=== PATIENT | female | born 1965 | race Hispanic/Latino ===

== ENCOUNTER 2017-10-05 02:40 | Emergency (ER) | payer SELFPAY ==
[2017-10-05 03:32] LABS: Absolute Lymphocytes (CBC) 0.9 K/uL (0.7-4.9); Absolute Monocytes 0.4 K/uL (0.1-1.3); Absolute Neutrophil 3.9 K/uL (1.8-8.0); Basophils % 0.4 % (0-1.3); Eosinophils % 0.9 % (0-4.4); Hematocrit 33.6 % (36.0-45.0); Lymphocytes % 16.2 % (15.3-44.8); MCH 30.3 pg (27.0-35.0); MCV 87.5 fL (80-100); MPV 10.3 fL (7.6-11.3); Monocytes % 8.3 % (3.3-12.3); RBC Red Blood Cell Count 3.84 M/uL (3.86-4.86)
[2017-10-05 03:44] LABS: ALT/SGPT 18 U/L (12-78); AST/SGOT 16 U/L (15-37); Albumin 3.5 g/dL (3.4-5.0); Alkaline Phosphatase 165 U/L (45-117); BUN Blood Urea Nitrogen 14 mg/dL (7-18); Bicarbonate 25 mmol/L (21-32); Bilirubin Direct < 0.1 mg/dL (0-0.2); Bilirubin Total 0.2 mg/dL (0.2-1.0); Creatine Phosphokinase 58 U/L (26-192); Glucose Level 111 mg/dL (74-106); Magnesium 2.1 mg/dL (1.8-2.4); Phenytoin (Dilantin) Level 5.7 ug/mL (10.0-20.0); Potassium 3.4 mmol/L (3.5-5.1); Protein, Total 7.3 g/dL (6.4-8.2); Sodium Level 142 mmol/L (136-145)
[2017-10-05] MEDS ORDERED: FOSPHENYTOIN PE 500 MG/10 ML VIAL ONE (04:44)
[2017-10-05] MEDS ORDERED: NA CHLORIDE 0.9% 100 ML IV ONE (04:44)
--- NOTE | 2017-10-05 05:18 | EDPHYS ---
Physician Documentation [facility] Name: Janina Calle Age: 51 yrs Sex: Female : 1965 Arrival Date: 10/05/2017 Time: 02:41 Bed 6 Private MD: ED Physician Madi Bone HPI: 10/05 02:44 This 51 yrs old Female presents to ER via EMS with complaints of Seizure. tw4 02:44 The patient presents after having a single isolated seizure, that lasted 1 minute(s). tw4 Character of seizure(s): Loss of consciousness: it is not known if the patient experienced loss of consciousness, Motor activity: generalized, shaking all over, Apnea: the patient did not experience apnea, Circulation: it is unknown whether or not the patient experienced a disturbance in pulse, Eye movements: are unknown. Seizure onset: just prior to arrival. Context: the seizure(s) was witnessed, by family, son. Seizure Hx: Last seizure: The patient's last seizure. Seizure Hx: Cause: unknown, Last seizure: The patient's last seizure was approximately 1 day(s) ago. Associated injury: The patient did not suffer any apparent associated injury. EMS care: none. Current symptoms: Currently, the patient is not experiencing any symptoms. The patient has experienced similar episodes in the past, several times. 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 - Social history:: Smoking status: Patient/guardian denies using tobacco. - Ebola Screening: : Patient negative for fever greater than or equal to 101.5 degrees Fahrenheit, and additional compatible Ebola Virus Disease symptoms Patient denies exposure to infectious person Patient denies travel to an Ebola-affected area in the 21 days before illness onset No symptoms or risks identified at this time. ROS: 02:44 Constitutional: Negative for fever, chills, and weight loss, Eyes: Negative for injury, tw4 pain, redness, and discharge, Cardiovascular: Negative for chest pain, palpitations, and edema, Respiratory: Negative for shortness of breath, cough, wheezing, and pleuritic chest pain, Abdomen/GI: Negative for abdominal pain, nausea, vomiting, diarrhea, and constipation, Back: Negative for injury and pain. 02:44 Neuro: Positive for seizure activity, Negative for altered mental status, dizziness, gait disturbance, headache, hearing loss, tinnitus, tremor, visual changes, weakness. Exam: 02:44 Constitutional: This is a well developed, well nourished patient who is awake, alert, tw4 and in no acute distress. Head/Face: Normocephalic, atraumatic. Chest/axilla: Normal chest wall appearance and motion. Nontender with no deformity. No lesions are appreciated. Cardiovascular: Regular rate and rhythm with a normal S1 and S2. No gallops, murmurs, or rubs. Normal PMI, no JVD. No pulse deficits. Respiratory: Lungs have equal breath sounds bilaterally, clear to auscultation and percussion. No rales, rhonchi or wheezes noted. No increased work of breathing, no retractions or nasal flaring. Abdomen/GI: Soft, non-tender, with normal bowel sounds. No distension or tympany. No guarding or rebound. No evidence of tenderness throughout. Back: No spinal tenderness. No costovertebral tenderness. Full range of motion. MS/ Extremity: Pulses equal, no cyanosis. Neurovascular intact. Full, normal range of motion. Vital Signs: 02:43 BP 99 / 57; Pulse 76; Resp 14; Temp 98; Pulse Ox 99% ; Weight 63.5 kg (R); bp 03:30 BP 100 / 61; Pulse 63; Resp 14; Pulse Ox 97% ; bp 04:26 BP 94 / 59; Pulse 72; Resp 14; Pulse Ox 100% ; bp 05:30 BP 95 / 56; Pulse 73; Resp 16; Pulse Ox 97% ; bp [place] Coma Score: 02:43 Eye Response: spontaneous(4). Verbal Response: oriented(5). Motor Response: obeys bp commands(6). Total: 15. MDM: 02:43 Patient medically screened. tw4 05:18 Differential diagnosis: seizure, TIA. Data reviewed: vital signs, nurses notes. Data tw4 interpreted: site monitor: Pulse oximetry: Interpretation: normal. Counseling: I had a detailed discussion with the patient and/or guardian regarding: the historical points, exam findings, and any diagnostic results supporting the discharge/admit diagnosis, lab results. Special discussion: I discussed with the patient/guardian in detail that at this point there is no indication for admission to the hospital. It is understood, however, that if the symptoms persist or worsen the patient needs to return immediately for re-evaluation. 10/05 03:05 Order name: CBC with Diff; Complete Time: 04:09 10/05 04:09 Interpretation: RBC 3.84; HCT 33.6; HGB 11.6; VALDO% 74.2. 10/05 03:05 Order name: CPK; Complete Time: 04:09 10/05 04:10 Interpretation: Within normal limits: CPK 58. 10/05 03:05 Order name: Hepatic Function; Complete Time: 04:09 10/05 04:10 Interpretation: Within normal limits: BILID < 0.1. 10/05 03:05 Order name: Magnesium; Complete Time: 04:09 10/05 04:10 Interpretation: Within normal limits: MG 2.1. 10/05 03:05 Order name: Ptt, Activated 10/05 03:05 Order name: CMP; Complete Time: 04:09 10/05 04:09 Interpretation: K 3.4; CL 108; GLUC 111; GFR 89. 10/05 03:05 Order name: Cardiac monitoring; Complete Time: 03:07 10/05 03:05 Order name: IV Saline Lock; Complete Time: 03:14 10/05 03:05 Order name: Labs collected and sent; Complete Time: 03:14 10/05 03:05 Order name: NPO; Complete Time: 03:07 10/05 03:05 Order name: O2 Per Protocol; Complete Time: 03:06 10/05 03:05 Order name: O2 Sat Monitoring; Complete Time: 03:06 10/05 03:05 Order name: Dilantin; Complete Time: 04:09 10/05 04:10 Interpretation: Normal except: PTN 5.7. tw4 Administered Medications: 04:30 Drug: Fosphenytoin 15 mg/kg Route: IVPB; Infused Over: 15 mins; Site: right antecubital;bp 05:00 Follow up: IV Status: Completed infusion; IV Intake: 100ml bp Disposition: 10/05/17 05:17 Discharged to Home. Impression: Epilepsy and recurrent seizures. - Condition is Stable. - Discharge Instructions: Seizure, Adult. - Prescriptions for Dilantin Kapseal 100 mg Oral Capsule - take 1 capsule by ORAL route every 8 hours; 30 capsule. - Work release form, Family Work Release, Medication Reconciliation Form, Thank You Letter, Antibiotic Education, Prescription Opioid Use form. - Follow up: Private Physician; When: Today; Reason: Further diagnostic work-up, Recheck today's complaints, Continuance of care. - Problem is new. - Symptoms have improved. Signatures: Dispatcher [employer] Daniel Garrido RN RN Madi Aguirre MD MD tw4 Corrections: (The following items were deleted from the chart) 05:33 05:17 10/05/2017 05:17 Discharged to Home. Impression: Epilepsy and recurrent seizures. bp Condition is Stable. Forms are Medication Reconciliation Form, Thank You Letter, Antibiotic Education, Prescription Opioid Use. Follow up: Private Physician; When: Today; Reason: Further diagnostic work-up, Recheck today's complaints, Continuance of care. Problem is new. Symptoms have improved. tw4
--- NOTE | 2017-10-05 05:18 | ER ---
Nurse's Notes [facility] Name: Janina Calle Age: 51 yrs Sex: Female : 1965 Arrival Date: 10/05/2017 Time: 02:41 Bed 6 Private MD: Diagnosis: Epilepsy and recurrent seizures Presentation: 10/05 02:42 Presenting complaint: EMS states: FOUR SEIZURES OVER THE LAST TWO DAYS. Transition of bp care: patient was not received from another setting of care. Onset of symptoms is unknown. Risk Assessment: Do you want to hurt yourself or someone else? Patient reports no desire to harm self or others. Initial Sepsis Screen: Does the patient meet any 2 criteria? No. Patient's initial sepsis screen is negative. Does the patient have a suspected source of infection? No. Patient's initial sepsis screen is negative. Care prior to arrival: IV initiated. 22 GA, in the right antecubital area. 02:42 Method Of Arrival: EMS: [facility] bp 02:42 Acuity: JAYLEN 3 bp Triage Assessment: 02:43 General: Appears in no apparent distress. comfortable, Behavior is calm, cooperative, bp appropriate for age. Pain: Denies pain. EENT: No deficits noted. Neuro: Level of Consciousness is awake, alert, obeys commands, Oriented to person, place, time, situation, Appropriate for age. Cardiovascular: No deficits noted. Respiratory: Airway is patent Respiratory effort is even, unlabored, Respiratory pattern is regular, symmetrical. GI: No signs and/or symptoms were reported involving the gastrointestinal system. : No signs and/or symptoms were reported regarding the genitourinary system. Derm: No deficits noted. Musculoskeletal: Circulation, motion, and sensation intact. Range of motion: intact in all extremities. 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 - Social history:: Smoking status: Patient/guardian denies using tobacco. - Ebola Screening: : Patient negative for fever greater than or equal to 101.5 degrees Fahrenheit, and additional compatible Ebola Virus Disease symptoms Patient denies exposure to infectious person Patient denies travel to an Ebola-affected area in the 21 days before illness onset No symptoms or risks identified at this time. Screenin:46 Abuse screen: Denies threats or abuse. Denies injuries from another. Nutritional bp screening: No deficits noted. Tuberculosis screening: No symptoms or risk factors identified. Fall Risk No fall in past 12 months (0 pts). Secondary diagnosis (15 points) seizures, IV access (20 points). Ambulatory Aid- None/Bed Rest/Nurse Assist (0 pts). Gait- Normal/Bed Rest/Wheelchair (0 pts) Mental Status- Oriented to own ability (0 pts). Total [place] Fall Scale indicates Low Risk Score (25-44 pts). Fall prevention measures have been instituted. Side Rails Up X 2 Placed close to Nursing Station Frequent Obs/Assesments occuring Family Present and informed to notify staff if they need to leave bedside As available Patient and Family Educated on Fall Prevention Program and strategies. Assessment: 02:46 General: 51YO HF P/W SZ ACTIVITY AT HOME, KNOWN H/O SZ D/O. bp 03:30 Reassessment: PT RESTING QUIETLY, NO S/S SZ ACTIVITY AT THIS TIME, VS STABLE ON MONITOR.bp 04:30 Reassessment: IV INFUSING, VS STABLE. DISPO PENDING AFTER INFUSION. bp 05:31 Reassessment: PT D/C HOME VIA W/C WITH FAMILY, DX WITH SEIZURE ACTIVITY. bp Vital Signs: 02:43 BP 99 / 57; Pulse 76; Resp 14; Temp 98; Pulse Ox 99% ; Weight 63.5 kg (R); bp 03:30 BP 100 / 61; Pulse 63; Resp 14; Pulse Ox 97% ; bp 04:26 BP 94 / 59; Pulse 72; Resp 14; Pulse Ox 100% ; bp 05:30 BP 95 / 56; Pulse 73; Resp 16; Pulse Ox 97% ; bp [place] Coma Score: 02:43 Eye Response: spontaneous(4). Verbal Response: oriented(5). Motor Response: obeys bp commands(6). Total: 15. ED Course: 02:41 Patient arrived in ED. bp 02:43 Triage completed. bp 02:43 Madi Bone MD is Attending Physician. tw4 02:43 Arm band placed on right wrist. bp 02:46 Patient has correct armband on for positive identification. Bed in low position. Call bp light in reach. Side rails up X2. 02:46 Maintain EMS IV. Dressing intact. Good blood return noted. Site clean \T\ dry. Gauge \T\ bp site: 22 GAUGE R AC. 02:50 Seizure precautions initiated. bp 03:06 Daniel De Los Santos, RN is Primary Nurse. bp 05:32 No provider procedures requiring assistance completed. IV discontinued, intact, bp bleeding controlled, No redness/swelling at site. Pressure dressing applied. Administered Medications: 04:30 Drug: Fosphenytoin 15 mg/kg Route: IVPB; Infused Over: 15 mins; Site: right antecubital;bp 05:00 Follow up: IV Status: Completed infusion; IV Intake: 100ml bp Intake: 05:00 IV: 100ml; Total: 100ml. bp Outcome: 05:17 Discharge ordered by . tw4 05:32 Discharged to home via wheelchair, with family. bp 05:32 Condition: stable 05:32 Discharge instructions given to patient, family, Instructed on discharge instructions, follow up and referral plans. medication usage, Demonstrated understanding of instructions, follow-up care, medications, Prescriptions given X 1. 05:33 Patient left the ED. bp Signatures: Daniel De Los Santos, RN RN Madi Aguirre, MD ANGUIANO tw4
[2017-10-05 05:43] VITALS: TEMP 98
[2017-10-05 05:47] VITALS: BP 95/56; O2SAT 97
== END 2017-10-05 05:33 | disposition home or self-care (01) ==
LOC: ER 02:40
DX: G40.802 Other epilepsy, not intractable, without status epilepticus (principal)
CPT/HCPCS: 36415; 80053; 80076; 80185; 82550; 83735; 85025; 85730; 96365; 99283; Q2009

== ENCOUNTER 2019-02-12 03:40 | Emergency (ER) | payer SELFPAY ==
--- NOTE | 2019-02-12 05:43 | ER ---
Nurse's Notes [facility] Name: Janina Calle Age: 53 yrs Sex: Female : 1965 Arrival Date: 02/12/2019 Time: 03:53 Bed 4 Private MD: Diagnosis: Seizure disorder Presentation: 02/12 03:53 Presenting complaint: EMS states: Called for witness seizure by grandson, reports lp1 patient did not hit head; Patient awake on arrival of EMS, delayed answering questions; Hx of seizures, denies missing any medication doses. Transition of care: patient was not received from another setting of care. Onset of symptoms was February 12, 2019. Risk Assessment: Do you want to hurt yourself or someone else? Patient reports no desire to harm self or others. Initial Sepsis Screen: Does the patient meet any 2 criteria? No. Patient's initial sepsis screen is negative. Does the patient have a suspected source of infection? No. Patient's initial sepsis screen is negative. Care prior to arrival: None. 03:53 Method Of Arrival: EMS: [facility] lp1 03:53 Acuity: JAYLEN 2 lp1 Historical: - Allergies: 04:04 No Known Allergies; lp1 - Home Meds: 04:04 Phenytoin 100 mg Oral [Active]; ferrous fumarate oral oral once daily [Active]; lp1 Macrobid 100 mg Oral cap every 8 hours [Active]; - PMHx: 04:04 Seizures; lp1 - PSHx: 04:04 None; lp1 - Immunization history:: Adult Immunizations up to date, Adult Immunizations up to date. - Social history:: Smoking status: Patient/guardian denies using tobacco, Smoking status: Patient/guardian denies using tobacco. - Ebola Screening: : No symptoms or risks identified at this time No symptoms or risks identified at this time. Screenin:58 Abuse screen: Denies threats or abuse. Nutritional screening: No deficits noted. ea Tuberculosis screening: No symptoms or risk factors identified. Fall Risk None identified. Assessment: 03:56 General: Appears in no apparent distress. Behavior is calm, cooperative, appropriate ea for age. Pain: Denies pain. Neuro: Level of Consciousness is awake, alert, obeys commands, Oriented to person, place, time, situation. Cardiovascular: Patient's skin is warm and dry. Respiratory: Airway is patent Respiratory effort is even, unlabored, Respiratory pattern is regular, symmetrical. Derm: Skin is pink, warm \T\ dry. 04:30 Reassessment: Patient and/or family updated on plan of care and expected duration. Pain ea level reassessed. Patient is alert, oriented x 3, equal unlabored respirations, skin warm/dry/pink. 05:39 Reassessment: Verbal order from Dr. Foster for Dilantin 200 mg PO. lp1 05:48 Reassessment: Patient and/or family updated on plan of care and expected duration. Pain ea level reassessed. Patient is alert, oriented x 3, equal unlabored respirations, skin warm/dry/pink. 06:17 Reassessment: Patient and/or family updated on plan of care and expected duration. Pain ea level reassessed. Patient is alert, oriented x 3, equal unlabored respirations, skin warm/dry/pink. Discharge instruction given to patient, verbalized the understanding on instruction. Pt left ED ambulatory accompanied by family, pt tolerating well. Vital Signs: 03:55 BP 99 / 61; Pulse 77; Resp 18; Temp 98.3(O); Pulse Ox 100% on R/A; Weight 52.16 kg; lp1 Pain 0/10; 05:01 BP 92 / 63; Pulse 70; Resp 18; Pulse Ox 100% on R/A; ea 06:16 BP 106 / 60; Pulse 72; Resp 18; Pulse Ox 98% ; ea [place] Coma Score: 03:59 Eye Response: spontaneous(4). Verbal Response: oriented(5). Motor Response: obeys ea commands(6). Total: 15. ED Course: 03:50 Missed attempt(s): 22 gauge in right forearm. vc 03:53 Patient arrived in ED. lp1 03:55 Triage completed. lp1 03:55 Arm band placed on left wrist. lp1 03:56 Sandhya Roberts, KISHA is Primary Nurse. ea 03:58 Patient has correct armband on for positive identification. Bed in low position. Call ea light in reach. Side rails up X2. 03:58 Seizure precautions initiated. ea 04:00 Inserted saline lock: 22 gauge in left hand, using aseptic technique. vc 04:31 Gm Foster MD is Attending Physician. pkl 06:16 No provider procedures requiring assistance completed. IV discontinued, intact, ea bleeding controlled, No redness/swelling at site. Pressure dressing applied. Administered Medications: 05:57 Drug: Dilantin 200 mg Route: PO; ea 06:19 Follow up: Response: No adverse reaction ea Outcome: 05:40 Discharge ordered by . jose c 06:17 Discharged to home ambulatory, with family. richard 06:17 Condition: stable 06:17 Discharge instructions given to patient, Instructed on discharge instructions, follow up and referral plans. medication usage, Demonstrated understanding of instructions, follow-up care, medications, Prescriptions given X 1. 06:19 Patient left the ED. ea Signatures: Gm Foster MD MD pkl Pena, Laura RN RN lp1 Sandhya Roberts RN RN Trinh Kumari RN RN vc
--- NOTE | 2019-02-12 05:46 | EDPHYS ---
Physician Documentation [facility] Name: Janina Calle Age: 53 yrs Sex: Female : 1965 Arrival Date: 02/12/2019 Time: 03:53 Bed 4 Private MD: ED Physician Gm Foster HPI: 02/12 04:38 This 53 yrs old Female presents to ER via EMS with complaints of Seizure. pkl 04:38 The patient presents after having a single isolated seizure, that lasted 5 minute(s), pkl the episode(s) was witnessed, by family. Character of seizure(s): Loss of consciousness: the patient experienced loss of consciousness, Motor activity: generalized. Seizure onset: just prior to arrival. Current symptoms: Currently, the patient is not experiencing any symptoms, the patient feels back to baseline. The patient has experienced similar episodes in the past, a few times. Historical: - Allergies: 04:04 No Known Allergies; lp1 - Home Meds: 04:04 Phenytoin 100 mg Oral [Active]; ferrous fumarate oral oral once daily [Active]; lp1 Macrobid 100 mg Oral cap every 8 hours [Active]; - PMHx: 04:04 Seizures; lp1 - PSHx: 04:04 None; lp1 - Immunization history:: Adult Immunizations up to date, Adult Immunizations up to date. - Social history:: Smoking status: Patient/guardian denies using tobacco, Smoking status: Patient/guardian denies using tobacco. - Ebola Screening: : No symptoms or risks identified at this time No symptoms or risks identified at this time. ROS: 04:38 Eyes: Negative for injury, pain, redness, and discharge, ENT: Negative for injury, pkl pain, and discharge, Neck: Negative for injury, pain, and swelling, Cardiovascular: Negative for chest pain, palpitations, and edema, Respiratory: Negative for shortness of breath, cough, wheezing, and pleuritic chest pain, Abdomen/GI: Negative for abdominal pain, nausea, vomiting, diarrhea, and constipation, Back: Negative for injury and pain, : Negative for injury, bleeding, discharge, and swelling, MS/Extremity: Negative for injury and deformity, Skin: Negative for injury, rash, and discoloration. 04:38 Neuro: Positive for seizure activity. Exam: 04:38 Head/Face: Normocephalic, atraumatic. Eyes: Pupils equal round and reactive to light, pkl extra-ocular motions intact. Lids and lashes normal. Conjunctiva and sclera are non-icteric and not injected. Cornea within normal limits. Periorbital areas with no swelling, redness, or edema. ENT: Nares patent. No nasal discharge, no septal abnormalities noted. Tympanic membranes are normal and external auditory canals are clear. Oropharynx with no redness, swelling, or masses, exudates, or evidence of obstruction, uvula midline. Mucous membranes moist. Neck: Trachea midline, no thyromegaly or masses palpated, and no cervical lymphadenopathy. Supple, full range of motion without nuchal rigidity, or vertebral point tenderness. No Meningismus. Chest/axilla: Normal chest wall appearance and motion. Nontender with no deformity. No lesions are appreciated. Cardiovascular: Regular rate and rhythm with a normal S1 and S2. No gallops, murmurs, or rubs. Normal PMI, no JVD. No pulse deficits. Respiratory: Lungs have equal breath sounds bilaterally, clear to auscultation and percussion. No rales, rhonchi or wheezes noted. No increased work of breathing, no retractions or nasal flaring. Abdomen/GI: Soft, non-tender, with normal bowel sounds. No distension or tympany. No guarding or rebound. No evidence of tenderness throughout. Back: No spinal tenderness. No costovertebral tenderness. Full range of motion. Skin: Warm, dry with normal turgor. Normal color with no rashes, no lesions, and no evidence of cellulitis. MS/ Extremity: Pulses equal, no cyanosis. Neurovascular intact. Full, normal range of motion. Neuro: Awake and alert, GCS 15, oriented to person, place, time, and situation. Cranial nerves II-XII grossly intact. Motor strength 5/5 in all extremities. Sensory grossly intact. Cerebellar exam normal. Normal gait. Vital Signs: 03:55 BP 99 / 61; Pulse 77; Resp 18; Temp 98.3(O); Pulse Ox 100% on R/A; Weight 52.16 kg; lp1 Pain 0/10; 05:01 BP 92 / 63; Pulse 70; Resp 18; Pulse Ox 100% on R/A; ea 06:16 BP 106 / 60; Pulse 72; Resp 18; Pulse Ox 98% ; ea [place] Coma Score: 03:59 Eye Response: spontaneous(4). Verbal Response: oriented(5). Motor Response: obeys ea commands(6). Total: 15. MDM: 04:31 Patient medically screened. pkl 05:39 Data reviewed: vital signs, nurses notes, lab test result(s). pkl 02/12 04:35 Order name: Dilantin; Complete Time: 05:35 pkl Administered Medications: 05:57 Drug: Dilantin 200 mg Route: PO; ea 06:19 Follow up: Response: No adverse reaction ea Disposition: 02/12/19 05:40 Discharged to Home. Impression: Seizure disorder. - Condition is Stable. - Prescriptions for Dilantin Kapseal 100 mg Oral Capsule - take 1 capsule by ORAL route every 8 hours; 30 capsule. - Medication Reconciliation Form, Thank You Letter, Antibiotic Education, Prescription Opioid Use, Family Work Release form. - Follow up: Private Physician; When: 2 - 3 days; Reason: Re-evaluation by your physician. - Problem is new. - Symptoms have improved. Signatures: Dispatcher [employer] EDMS Gm Foster MD MD pkl Teagan Saldaña RN RN [facility] Sandhya Roberts RN RN ea Corrections: (The following items were deleted from the chart) 06:19 05:40 02/12/2019 05:40 Discharged to Home. Impression: Seizure disorder. Condition is ea Stable. Forms are Medication Reconciliation Form, Thank You Letter, Antibiotic Education, Prescription Opioid Use. Follow up: Private Physician; When: 2 - 3 days; Reason: Re-evaluation by your physician. Problem is new. Symptoms have improved. pkl
[2019-02-12] MEDS ORDERED: PHENYTOIN ER 100 MG CAP PO ONE (05:52)
[2019-02-12 06:26] VITALS: TEMP 98.3
[2019-02-12 06:28] VITALS: BP 106/60; O2SAT 98
== END 2019-02-12 06:19 | disposition home or self-care (01) ==
LOC: ER 03:40
DX: G40.909 Epilepsy, unspecified, not intractable, without status epilepticus (principal)
CPT/HCPCS: 36415; 80185; 99284

== ENCOUNTER 2019-02-23 05:48 | Emergency (ER) | payer SELFPAY ==
[2019-02-23] MEDS ORDERED: NA CHLORIDE 0.9% 500 ML ONE (06:22)
[2019-02-23] MEDS ORDERED: LORazepam 2 MG/ML VIAL ONE (06:29)
[2019-02-23 07:02] LABS: Absolute Lymphocytes (CBC) 0.5 K/uL (0.7-4.9); Basophils % 0.2 % (0-1.3); Hematocrit 36.9 % (36.0-45.0); Lymphocytes % 7.3 % (15.3-44.8); MPV 9.9 fL (7.6-11.3); RBC Red Blood Cell Count 4.07 M/uL (3.86-4.86)
--- NOTE | 2019-02-23 07:18 | RAD REPORT ---
EXAM DESCRIPTION: CT - Head Brain Wo Cont - 02/23/2019 7:07 am CLINICAL HISTORY: Seizure COMPARISON: 2015 TECHNIQUE: Computed axial tomography of the head was obtained. IV contrast was not requested. All CT scans are performed using dose optimization technique as appropriate and may include automated exposure control or mA/KV adjustment according to patient size. FINDINGS: An intracranial bleed is not seen . The ventricles are normal in caliber. No extra-axial fluid collection is noted. Punctate calcification within the right cerebrum is unchang ed Mild opacification frontal sinus. Chronic opacification left mastoids. IMPRESSION: No acute intracranial abnormality is seen. If patient's symptoms persist MRI of the bra in would be recommended.
[2019-02-23 07:27] LABS: Albumin 3.8 g/dL (3.4-5.0); Bilirubin Total 0.3 mg/dL (0.2-1.0); Phenytoin (Dilantin) Level 3.9 ug/mL (10.0-20.0); Potassium 3.8 mmol/L (3.5-5.1); Protein, Total 8.2 g/dL (6.4-8.2)
[2019-02-23 07:58] LABS: Blood Morphology Comment NOT SEEN (NOT SEEN); Platelet Estimate ADEQ; White Blood Cell Scan OK
[2019-02-23] MEDS ORDERED: PHENYTOIN ER 100 MG CAP PO ONE (08:02)
--- NOTE | 2019-02-23 08:44 | EDPHYS ---
Physician Documentation [facility] Name: Janina Calle Age: 53 yrs Sex: Female : 1965 Arrival Date: 02/23/2019 Time: 05:49 Bed 3 Private MD: ED Physician Gm Foster HPI: 02/23 06:14 This 53 yrs old Female presents to ER via EMS with complaints of Seizure. la1 06:14 The patient presents after having a single isolated seizure, that lasted 3 minute(s). la1 Character of seizure(s): Loss of consciousness: the patient experienced loss of consciousness, Motor activity: the motor activity is unknown, Incontinence: none. Seizure onset: this morning. Context: the seizure(s) was witnessed, by a friend, occurred at home. Seizure Hx: Last seizure: The patient's last seizure was approximately 1 week(s) ago, Usual frequency: roughly every 1 week(s), Seizure medications: phenytoin. Associated injury: The patient did not suffer any apparent associated injury. Current symptoms: Currently, the patient is not experiencing any symptoms. The patient has experienced similar episodes in the past, chronically, and the symptoms today are exactly the same. Historical: - Allergies: 05:59 No Known Allergies; fc - Home Meds: 05:59 Phenytoin 100 mg Oral twice a day [Active]; fc - PMHx: 05:59 Seizures; fc - PSHx: 05:59 None; fc - Immunization history:: Last tetanus immunization: unknown, Flu vaccine is not up to date. - Social history:: Smoking status: Patient denies any tobacco usage or history of. Patient/guardian denies using alcohol, street drugs, IV drugs. - Ebola Screening: : Patient negative for fever greater than or equal to 101.5 degrees Fahrenheit, and additional compatible Ebola Virus Disease symptoms Patient denies exposure to infectious person Patient denies travel to an Ebola-affected area in the 21 days before illness onset. ROS: 06:16 Constitutional: Negative for fever, chills, and weight loss, Eyes: Negative for injury, la1 pain, redness, and discharge, ENT: Negative for injury, pain, and discharge, Neck: Negative for injury, pain, and swelling, Cardiovascular: Negative for chest pain, palpitations, and edema, Respiratory: Negative for shortness of breath, cough, wheezing, and pleuritic chest pain, Abdomen/GI: Negative for abdominal pain, nausea, vomiting, diarrhea, and constipation, Back: Negative for injury and pain, : Negative for injury, bleeding, discharge, and swelling, MS/Extremity: Negative for injury and deformity, Skin: Negative for injury, rash, and discoloration. 06:16 Neuro: Positive for seizure activity at home. Exam: 06:16 Constitutional: This is a well developed, well nourished patient who is awake, alert, la1 and in no acute distress. Head/Face: Normocephalic, atraumatic. Eyes: Pupils equal round and reactive to light, extra-ocular motions intact. Lids and lashes normal. Conjunctiva and sclera are non-icteric and not injected. Periorbital areas with no swelling, redness, or edema. ENT: Mucous membranes moist. Neck: Trachea midline,neck Supple, no vertebral point tenderness. Chest/axilla: Normal chest wall appearance and motion. Nontender with no deformity. Cardiovascular: Regular rate and rhythm with a normal S1 and S2. Respiratory: Lungs have equal breath sounds bilaterally, clear to auscultation . No rales, rhonchi or wheezes noted. No increased work of breathing, no retractions or nasal flaring. Abdomen/GI: Soft, non-tender, with normal bowel sounds. . No guarding or rebound. No evidence of tenderness throughout. Back: No spinal tenderness. No costovertebral tenderness. Full range of motion. MS/ Extremity: Pulses equal, no cyanosis. Neurovascular intact. Full, normal range of motion. Vital Signs: 05:45 BP 98 / 54; Pulse 85; Resp 16; Temp 98.9(O); Pulse Ox 100% on R/A; Weight 54.43 kg (R); fc Height 5 ft. 0 in. (152.40 cm) (R); Pain 0/10; 08:30 BP 94 / 57; Pulse 64; Resp 18; Pulse Ox 99% on R/A; Pain 0/10; em 10:38 BP 101 / 69; Pulse 79; Resp 18; Pulse Ox 99% on R/A; Pain 0/10; em 05:45 Body Mass Index 23.44 (54.43 kg, 152.40 cm) fc MDM: 06:01 Patient medically screened. la1 08:39 Data reviewed: vital signs, nurses notes, lab test result(s), radiologic studies, and la1 as a result, I will discharge patient. Data interpreted: Pulse oximetry: on is 100 %. Interpretation: normal. Test interpretation: by ED physician or midlevel provider: ECG. Counseling: I had a detailed discussion with the patient and/or guardian regarding: the historical points, exam findings, and any diagnostic results supporting the discharge/admit diagnosis, the need for outpatient follow up, a neurologist, to return to the emergency department if symptoms worsen or persist or if there are any questions or concerns that arise at home. Special discussion: Based on the history and exam findings, there is no indication for further emergent testing or inpatient evaluation. I discussed with the patient/guardian the need to see the neurologist for further evaluation of the symptoms. ED course: Pt has had no seizure activity during ED stay, has yelled out twice which son states she does before she has a seizure so she was given 1mg of ativan, pt at baseline mental status not focal neurological deficits. Pt with history of sz, states this seizure is similar to previous, recommended FU with neurology and PCP for possible dose/medication adjustment.. 02/23 06:09 Order name: CBC with Diff 02/23 06:09 Order name: CMP 02/23 06:09 Order name: Dilantin la02/23 06:10 Order name: CBC with Automated Diff; Complete Time: 19:01 EDMS 02/23 06:10 Order name: Comprehensive Metabolic Panel; Complete Time: 07:31 EDMS 02/23 06:10 Order name: Phenytoin (Dilantin) Level; Complete Time: 07:31 EDMS 02/23 06:09 Order name: IV; Complete Time: 06:49 02/23 06:09 Order name: EKG - Nurse/Tech; Complete Time: 06:49 la02/23 06:23 Order name: CT Head Brain wo Cont; Complete Time: 07:23 la02/23 07:58 Order name: CBC Smear Scan; Complete Time: 19:01 EDMS 02/23 08:16 Order name: EKG Electrocardiogram EDMS Administered Medications: 06:36 Drug: Ativan 0.5 mg Route: IVP; Site: right wrist; ea 07:30 Follow up: Response: No adverse reaction em 06:37 Drug: NS 0.9% 500 ml Route: IV; Rate: bolus; Site: right wrist; ea 07:30 Follow up: IV Status: Completed infusion; IV Intake: 500ml em 08:05 Drug: Dilantin 200 mg Route: PO; em 08:16 Follow up: Response: No adverse reaction em Disposition: 02/23/19 08:43 Discharged to Home. Impression: Epilepsy and recurrent seizures. - Condition is Stable. - Discharge Instructions: Epilepsy, Seizure, Adult, Seizure, Adult, [id number], Epilepsy, [id number]. - Medication Reconciliation Form, Thank You Letter form. - Follow up: Private Physician; When: 2 - 3 days; Reason: Recheck today's complaints, Re-evaluation by your physician. - Problem is an ongoing problem. - Symptoms have improved. Addendum: 03/10/2019 19:00 Co-signature as Attending Physician, Gm Foster MD. p Signatures: Dispatcher [employer] EDGm Stephenson MD MD pkl Chretien, Felicia RN RN Sukhwinder Kapoor RN RN em Mane Mayorga, SPLITTER HAND-C SPLITTER HAND-Cla1 Sandhya Roberts RN KISHA ramos Corrections: (The following items were deleted from the chart) 02/23 11:04 08:43 02/23/2019 08:43 Discharged to Home. Impression: Epilepsy and recurrent seizures. em Condition is Stable. Forms are Medication Reconciliation Form, Thank You Letter, Antibiotic Education, Prescription Opioid Use. Follow up: Private Physician; When: 2 - 3 days; Reason: Recheck today's complaints, Re-evaluation by your physician. Problem is an ongoing problem. Symptoms have improved. la1
--- NOTE | 2019-02-23 08:44 | ER ---
Nurse's Notes [facility] Name: Janina Calle Age: 53 yrs Sex: Female : 1965 Arrival Date: 02/23/2019 Time: 05:49 Bed 3 Private MD: Diagnosis: Epilepsy and recurrent seizures Presentation: 02/23 05:45 Presenting complaint: EMS states: that they were toned for pt having seizure. Upon fc their arrival pt was post ictal and son arrived on scene stating that pt has hx of seizures. He states that she has at least 2 times a week even on her medication. Transition of care: patient was not received from another setting of care. Onset of symptoms was February 23, 2019 at 05:00. Risk Assessment: Do you want to hurt yourself or someone else? Patient reports no desire to harm self or others. Initial Sepsis Screen: Does the patient meet any 2 criteria? No. Patient's initial sepsis screen is negative. Does the patient have a suspected source of infection? No. Patient's initial sepsis screen is negative. Care prior to arrival: IV initiated. 22 GA, in the right wrist, Glucose check: 240. 05:45 Method Of Arrival: EMS: [facility] 05:45 Acuity: JAYLEN 3 fc Historical: - Allergies: 05:59 No Known Allergies; fc - Home Meds: 05:59 Phenytoin 100 mg Oral twice a day [Active]; fc - PMHx: 05:59 Seizures; fc - PSHx: 05:59 None; fc - Immunization history:: Last tetanus immunization: unknown, Flu vaccine is not up to date. - Social history:: Smoking status: Patient denies any tobacco usage or history of. Patient/guardian denies using alcohol, street drugs, IV drugs. - Ebola Screening: : Patient negative for fever greater than or equal to 101.5 degrees Fahrenheit, and additional compatible Ebola Virus Disease symptoms Patient denies exposure to infectious person Patient denies travel to an Ebola-affected area in the 21 days before illness onset. Screenin:57 Abuse screen: Denies threats or abuse. Nutritional screening: No deficits noted. fc Tuberculosis screening: No symptoms or risk factors identified. Fall Risk None identified. Assessment: 05:57 General: Appears in no apparent distress. Behavior is calm, cooperative, appropriate ea for age. Pain: Denies pain. Neuro: Level of Consciousness is awake, alert, obeys commands, Oriented to person, place. Neuro: Seizure activity Patient is post-ictal at this time. Cardiovascular: Patient's skin is warm and dry. Respiratory: Airway is patent Respiratory effort is even, unlabored, Respiratory pattern is regular, symmetrical. Derm: Skin is pink, warm \T\ dry. 06:45 Reassessment: Patient and/or family updated on plan of care and expected duration. Pain ea level reassessed. Patient is alert, oriented x 3, equal unlabored respirations, skin warm/dry/pink. 07:30 Reassessment: Patient appears in no apparent distress at this time. Patient and/or em family updated on plan of care and expected duration. Pain level reassessed. Patient is alert, oriented x 3, equal unlabored respirations, skin warm/dry/pink. Patient denies pain at this time. Patient states feeling better. 08:30 Reassessment: Patient appears in no apparent distress at this time. Patient and/or em family updated on plan of care and expected duration. Pain level reassessed. Patient is alert, oriented x 3, equal unlabored respirations, skin warm/dry/pink. 10:30 Reassessment: Patient appears in no apparent distress at this time. Patient and/or em family updated on plan of care and expected duration. Pain level reassessed. Patient is alert, oriented x 3, equal unlabored respirations, skin warm/dry/pink. Vital Signs: 05:45 BP 98 / 54; Pulse 85; Resp 16; Temp 98.9(O); Pulse Ox 100% on R/A; Weight 54.43 kg (R); Height 5 ft. 0 in. (152.40 cm) (R); Pain 0/10; 08:30 BP 94 / 57; Pulse 64; Resp 18; Pulse Ox 99% on R/A; Pain 0/10; em 10:38 BP 101 / 69; Pulse 79; Resp 18; Pulse Ox 99% on R/A; Pain 0/10; em 05:45 Body Mass Index 23.44 (54.43 kg, 152.40 cm) ED Course: 05:45 Arm band placed on Patient placed in an exam room, on a stretcher. 05:45 Patient has correct armband on for positive identification. Placed in gown. Bed in low fc position. Call light in reach. Side rails up X2. Seizure precautions initiated. air sampling and monitoring on. Pulse ox on. NIBP on. 05:45 No provider procedures requiring assistance completed. Maintain EMS IV. Dressing fc intact. Good blood return noted. Site clean \T\ dry. Gauge \T\ site: 22 gauge to right wrist. 05:49 Patient arrived in ED. cl3 05:56 Triage completed. fc 06:01 Mane Mayorga F[facility]-C [facility]. la1 06:01 Gm Foster MD is Attending Physician. la1 06:17 Sandhya Roberts, KISHA is Primary Nurse. ea 07:07 CT Head Brain wo Cont In Process Unspecified. EDMS 10:38 IV discontinued, intact, bleeding controlled, No redness/swelling at site. Pressure em dressing applied. Administered Medications: 06:36 Drug: Ativan 0.5 mg Route: IVP; Site: right wrist; ea 07:30 Follow up: Response: No adverse reaction em 06:37 Drug: NS 0.9% 500 ml Route: IV; Rate: bolus; Site: right wrist; ea 07:30 Follow up: IV Status: Completed infusion; IV Intake: 500ml em 08:05 Drug: Dilantin 200 mg Route: PO; em 08:16 Follow up: Response: No adverse reaction em Intake: 07:30 IV: 500ml; Total: 500ml. em Outcome: 08:43 Discharge ordered by MD. la1 10:38 Discharged to home via wheelchair, with family. em 10:38 Condition: good 10:38 Discharge instructions given to patient, family, Instructed on discharge instructions, follow up and referral plans. Demonstrated understanding of instructions, follow-up care. 11:04 Patient left the ED. em Signatures: Dispatcher [employer] EDMS Thi Ferreira RN RN fc Munoz, Edgar, RN RN em Mane Mayorga FNP-C FNP-[facility] Sandhya Roberts RN RN ea Lewis, Charde cl3
[2019-02-23 11:09] VITALS: O2SAT 99
[2019-02-23 11:10] VITALS: BP 101/69
--- NOTE | 2019-02-24 14:01 | EKG ---
Test Date: 2019-02-23 Test Time: 06:32:31 Pill Machine Operator: KWABENA MEASUREMENT RESULTS: Intervals: Rate: 73 ME: 128 QRSD: 80 QT: 400 QTc: 440 [place]: P: -34 ME: 128 QRS: 26 T: 16 INTERPRETIVE STATEMENTS: Unusual P axis, possible ectopic atrial rhythm Abnormal ECG Compared to ECG 05/03/2015 19:38:29 Sinus rhythm no longer present Electronically Signed On 02-24-19 13:59:11 COMPOSING MACHINE OPERATOR/TENDER by Gurpreet Ling
== END 2019-02-23 11:04 | disposition home or self-care (01) ==
LOC: ER 05:48
DX: G40.802 Other epilepsy, not intractable, without status epilepticus (principal)
CPT/HCPCS: 36415; 70450; 80053; 80185; 85025; 93005; 96361; 96374; 99284; J7040

== ENCOUNTER 2019-05-08 05:32 | Emergency (ER) | payer SELFPAY ==
--- NOTE | 2019-05-08 08:36 | RAD REPORT ---
EXAM DESCRIPTION: RAD - Chest Single View - 05/08/2019 7:27 am CLINICAL HISTORY: CHEST PAIN Chest pain. COMPARISON: No comparisons FINDINGS: Portable technique limits examination quality. The lungs are grossly clear. The heart is normal in size. No displaced fractures. IMPRESSION: No acute intrathoracic process suspected.
--- NOTE | 2019-05-08 08:45 | RAD REPORT ---
EXAM DESCRIPTION: CT - Head Brain Wo Cont - 05/08/2019 8:38 am CLINICAL HISTORY: Dizziness;Trauma Trauma, head injury, headache COMPARISON: Head Brain Wo Cont dated 02/23/2019; HEAD BRAIN W O CONTRAST dated 05/03/2015 TECHNIQUE: All CT scans are performed using dose optimization technique as appropriate and may inclu de automated exposure control or mA/KV adjustment according to patient size. FINDINGS: No intracranial hemorrhage, hydrocephalus or extra-axial fluid collection.No areas of brai n edema or evidence of midline shift. The paranasal sinuses and mastoids are clear. The calvarium is intact. IMPRESSION: No acute intracranial abnormality.
[2019-05-08] MEDS ORDERED: IBUPROFEN 400 MG TAB ONE (08:47)
[2019-05-08] MEDS ORDERED: ACETAMINOPHEN 500 MG TAB ONE (08:47)
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
[2019-05-08 10:59] VITALS: TEMP 98.6
[2019-05-08 11:06] VITALS: BP 105/45; O2SAT 100
[2019-05-10 04:16] LABS: HBsAG Nonreactive (Nonreactive)
[2019-05-10 13:49] LABS: HIV AG/AB 4TH GEN Non-reactive (Non-reactive)
== END 2019-05-08 10:53 ==
LOC: ER 05:32
DX: T76.21XA Adult sexual abuse, suspected, initial encounter (principal); Y04.8XXA Assault by other bodily force, initial encounter; Y93.89 Activity, other specified; Y92.003 Bedroom of unspecified non-institutional (private) residence as the place of occurrence of the external cause; G40.909 Epilepsy, unspecified, not intractable, without status epilepticus
CPT/HCPCS: 70450; 71045; 80074; 87389; 99285